=== PATIENT | female | born 1980 | race Caucasian/White ===

== ENCOUNTER 2016-12-15 18:24 | Emergency (ER) | payer SELFPAY ==
[~2016-12-15] VITALS: Ht 165.1 cm; Wt 79.2 kg
[2016-12-15 18:54] LABS: ADD MIUA? NO; BILIRUBIN NEGATIVE; BLOOD NEGATIVE; COLOR COLORLESS ((YELLOW)); GLUCOSE (STRIP) NEGATIVE; KETONES NEGATIVE; LEUKOCYTES NEGATIVE; NITRITE NEGATIVE; PROTEIN (STRIP) NEGATIVE; SPECIFIC GRAVITY 1.003 (1.000-1.030); UCUL ADDED? NO; UROBILINOGEN 0.2 MG/DL (0.2-1.0)
[2016-12-15 19:30] LABS: HEMATOCRIT 42.4 % (36.0-46.0); MCH 24.6 PG (29.0-34.0); MCHC 31.4 G/DL (30.0-36.0); MCV 78.5 FL (83-99); MEAN PLAT.VOLUME 9.8 uM^3 (9.5-12.4); PLATELET COUNT 405 K/uL (156-360); RBC DIS.WIDTH-CV 14.6 % (11.8-14.6); RBC DIS.WIDTH-SD 41.2 % (39-53); WHITE BLOOD COUNT 4.8 K/uL (4.1-10.2)
[2016-12-15 19:42] LABS: CHLORIDE 99 mEq/L (99-109); POTASSIUM 4.2 mEq/L (3.7-5.4); SODIUM 140 mEq/L (136-147)
[2016-12-15 19:44] LABS: GLUCOSE 74 mg/dL (70-99)
[2016-12-15 19:45] LABS: ANION GAP 12 MEQ/L (2-14)
[2016-12-15 19:46] LABS: TOTAL BILIRUBIN 0.3 mg/dL (0.0-1.0)
[2016-12-15 19:47] LABS: ALKALINE PHOSPHATASE 84 IU/L (3-129)
[2016-12-15 19:48] LABS: GFR ESTIMATE (CALCULATED) > 59 mL/min/
[2016-12-15 19:49] LABS: UREA NITROGEN (BUN) 17 mg/dL (9-23)
[2016-12-15 19:51] LABS: LIPASE 20 U/L (1.0-51.0)
[2016-12-15 19:58] LABS: QUANTITATIVE HCG < 4.0 MIU/ML
[2016-12-15] MEDS ORDERED: PROCTOFOAM-HC10 GM PR (20:16)
[2016-12-15] MEDS ORDERED: MIRALAX255 GM PO (20:16)
[2016-12-15] MEDS ORDERED: ATARAX,VISTARIL50 MG PO (20:16)
[2016-12-15 20:35] VITALS: BP 124/81
== END 2016-12-15 20:38 | disposition home or self-care (01) ==
LOC: EME 18:24
DX: K59.00 Constipation, unspecified (principal); F43.9 Reaction to severe stress, unspecified; K64.9 Unspecified hemorrhoids; F17.200 Nicotine dependence, unspecified, uncomplicated
CPT/HCPCS: 74000; 80053; 81003; 83690; 84702; 85027; 99281; 99284

== ENCOUNTER 2017-05-14 13:27 | Emergency (ER) | payer OTHER ==
[~2017-05-14] VITALS: Ht 165.1 cm; Wt 73.8 kg
[~2017-05-14 13:27] MED LIST: ATARAX,VISTARIL50 MG PO; MIRALAX255 GM PO; PROCTOFOAM-HC10 GM PR
[2017-05-14 14:12] LABS: ADD MIUA? NO; BILIRUBIN NEGATIVE; BLOOD NEGATIVE; COLOR YELLOW ((YELLOW)); GLUCOSE (STRIP) NEGATIVE; KETONES NEGATIVE; LEUKOCYTES NEGATIVE; NITRITE NEGATIVE; PROTEIN (STRIP) NEGATIVE; SPECIFIC GRAVITY 1.019 (1.000-1.030); UROBILINOGEN 0.2 MG/DL (0.2-1.0)
[2017-05-14 14:22] LABS: AMPHETAMINE NEGATIVE (500 ng/mL); BARBITURATES NEGATIVE (200 ng/mL); BENZODIAZEPINES PRESUMPTIVE POSITIVE (150 ng/mL); COCAINE PRESUMPTIVE POSITIVE (150 ng/mL); METHADONE NEGATIVE (200 ng/mL); METHAMPHETAMINE NEGATIVE (500 ng/mL); OPIATES (MORPHINE) PRESUMPTIVE POSITIVE (100 ng/mL); OXYCODONE NEGATIVE (100 ng/mL); PHENCYCLIDINE NEGATIVE (25 ng/mL); PROPOXYPHENE NEGATIVE (300 ng/mL); THC CANNABINOIDS NEGATIVE (50 ng/mL); TRICYCLIC ANTIDEPRESSANTS NEGATIVE (300 ng/mL)
[2017-05-14 14:22] LABS: EOSINOPHIL (%) 1.3 % (0-5); EOSINOPHIL COUNT 0.1 K/uL (0-0.3); HEMATOCRIT 33.1 % (36.0-46.0); IMMATURE GRANULOCYTE (%) 0.1 % (0.0-0.7); INSTRUMENT ABS NEUTROPHIL CT 5.9 K/uL; MCH 24.5 PG (29.0-34.0); MCHC 31.7 G/DL (30.0-36.0); MCV 77.2 FL (83-99); MEAN PLAT.VOLUME 9.3 uM^3 (9.5-12.4); MONOCYTE (%) 9.8 % (3-12); MONOCYTE COUNT 0.8 K/uL (0-0.8); NEUTROPHIL (%) 76.1 % (45-76); NEUTROPHIL COUNT 5.9 K/uL (1.8-6.4); PLATELET COUNT 296 K/uL (156-360); RBC DIS.WIDTH-CV 15.3 % (11.8-14.6); RBC DIS.WIDTH-SD 42.5 % (39-53); RED BLOOD COUNT 4.29 M/uL (3.80-5.20); WHITE BLOOD COUNT 7.7 K/uL (4.1-10.2)
[2017-05-14 14:23] LABS: ADD MEDTOX COMMENT Y; INTERNAL CONTROLS VALID? YES
[2017-05-14 14:34] LABS: CHLORIDE 104 mEq/L (99-109); POTASSIUM 4.1 mEq/L (3.7-5.4); SODIUM 140 mEq/L (136-147)
[2017-05-14 14:36] LABS: GLUCOSE 75 mg/dL (70-99)
[2017-05-14 14:37] LABS: ANION GAP 10 MEQ/L (2-14)
[2017-05-14 14:38] LABS: TOTAL BILIRUBIN 0.2 mg/dL (0.0-1.0)
[2017-05-14 14:39] LABS: SERUM ETHYL ALCOHOL < 10 mg/dL
[2017-05-14 14:40] LABS: ALKALINE PHOSPHATASE 86 IU/L (3-129); GFR ESTIMATE (CALCULATED) > 59 mL/min/
[2017-05-14 14:41] LABS: UREA NITROGEN (BUN) 10 mg/dL (9-23)
[2017-05-14 14:42] LABS: DIRECT BILIRUBIN 0.1 mg/dL (0.0-0.3)
[2017-05-14 14:48] LABS: QUANTITATIVE HCG < 4.0 MIU/ML
[2017-05-14 15:08] LABS: BENZODIAZEPINES QUANT VALUE 0 NG/ML; BENZODIAZEPINES, URINE SCREEN Negative (200 ng/mL)
[2017-05-14 20:42] VITALS: BP 95/51
== END 2017-05-14 20:43 | disposition home or self-care (01) ==
LOC: EME 13:27
PROVIDERS: Emergency Medicine
DX: T40.1X1A Poisoning by heroin, accidental (unintentional), initial encounter (principal); F14.10 Cocaine abuse, uncomplicated; F17.200 Nicotine dependence, unspecified, uncomplicated
CPT/HCPCS: 70450; 71010; 80048; 80076; 81003; 84702; 84999; 85025; 99281; 99285; G0480; J2310; J7030

== ENCOUNTER 2017-06-19 07:15 | Emergency (ER) | payer OTHER ==
[~2017-06-19] VITALS: Ht 154.9 cm; Wt 65.0 kg
[2017-06-19 07:17] VITALS: BP 116/53
== END 2017-06-19 07:49 | disposition left against medical advice (07) ==
LOC: EME 07:15
DX: M79.1 Myalgia (principal); M25.572 Pain in left ankle and joints of left foot; R45.1 Restlessness and agitation
CPT/HCPCS: 99281; 99283